=== PATIENT | female | born 1960 | race Caucasian/White ===

== ENCOUNTER 2016-03-17 08:57 | Outpatient (CLI) | payer OTHER | END 2016-03-17 08:58 | disposition home or self-care (01) | DX: G47.33 Obstructive sleep apnea (adult) (pediatric) (principal) ==

== ENCOUNTER 2017-05-16 13:49 | Outpatient (CLI) | payer OTHER | END 2017-05-16 13:50 | disposition home or self-care (01) | LOC: SC 13:49 | PROVIDERS: ATTEND Nurse Practitioner Family | DX: G47.33 Obstructive sleep apnea (adult) (pediatric) (principal) | CPT/HCPCS: 99212; 99213 ==

== ENCOUNTER 2018-07-10 08:16 | Outpatient (CLI) | payer OTHER | END 2018-07-10 08:17 | disposition home or self-care (01) | LOC: SC 08:16 | PROVIDERS: ATTEND Nurse Practitioner Family | DX: G47.33 Obstructive sleep apnea (adult) (pediatric) (principal) | CPT/HCPCS: 99212; 99214 ==

== ENCOUNTER 2019-07-17 17:00 | Outpatient (CLI) | payer OTHER ==
--- NOTE | 2019-07-17 16:43 | SLEEP CARE CONSULTATION ---
Information from patient questionnaire entered by Nelda Adams. I have reviewed and concur with the information entered by Nelda Adams. This document represents the service I personally performed and the decisions made by me, Carol Ann Traylor, RN, MSN, SUPPLY ASSISTANT. History of Present Illness Service Date and Time: 07/17/2019 1600 Previous diagnosis: Very Severe, Obstructive Sleep Apnea-Hypopnea Syndrome AHI: 78.6 Reason for follow up: annual Equipment type: CPAP Equipment obtained from: [facility] (getting supplies as needed) Mask style: Nasal pillows Backup mask available: Yes (old mask) Last cushion change: a few days ago Type of Sleep Study: Polysomnography CPAP Compliance Data - Data Reviewed with Patient Average duration of nightly device use: 7h 11m Compliance rate %: 98.3 Current pressure setting (cmH2O): 13.0 Humidity settin Heated hose settin Average residual AHI: 3.4 Average large leak: 1m 6s Subjective Patient concerns: reports: nasal congestion (sometimes - but is reduced with use of saline nasal spray 1- 2 times a week ), dry mouth, nose, throat (dry throat couple times a month - uses humidity only ), other (reported a 2 week period of elevated AHI of 16-17, no change in medications or medical conditions). denies: aerophagia, mask discomfort, air blowing in eyes, mask leak noise, condensation in mask/hose, epistaxis Observed to snore while using device: No Current pressure setting perceived as: comfortable On therapy, patient: reports: sleeping better, awakening more refreshed, being more awake and alert during the day, more rested overall, other. denies: drowsiness while driving Initial [place] Sleepiness Scale score: 15 Allergies and Home Medications Home medication list reviewed: No (no changes ) Review of Systems Review of systems same as previous: Yes Physical Exam Height: 5 ft 2 in Weight: 286 lb Body Mass Index: 52.3 BMI Classification: Morbidly Obese Impression and Plan 1. Obstructive Sleep Apnea-Hypopnea Syndrome, very severe, with good treatment compliance and good apnea control. On CPAP therapy, the patient has better sleep quality and is more rested overall. Nasal congestion and dry throat can be reduced with increasing the CPAP humidity. She does not use th heated hose which can be added if can if condensation with higher humidity setting. Saline nasal spray sample was also given to use prior to CPAP to clear nasal secretions and wash off any nasal allergens to facilitate nasal breathing. In addition, a steamy shower before bed will often assist nasal drainage. Printed instructions given on how to change humidity and heated hose settings with rationale explaining why to change. Patient has maintained her weight through the stress of the pandemic is is pleased as she is a stress eater. She is working with her primary provider to lose weight. Currently patients BMI is 52 / morbid obesity class. I reviewed how obesity increases the risk of apnea, CPAP pressure requirements and overall health risks especially cardiovascular and diabetes. Thus patient is encouraged to continue with plan of losing weight. I reviewed general principles of weight loss such as reducing portion size, reducing refined foods and balancing content with vegetables, fruit and protein. In addition tracking food intake will allow awareness of how to modify diet to achieve weight loss goals. Also eating more slowly will allow more awareness of food intake and enjoyment of food while assisting patient to modify intake at each meal. A diet consultation can be helpful in achieving optimal weight loss goals. Because weight loss can reduce CPAP pressure requirements I offered to change her CPAP pressure to an autoCPAP range to accommodate future weight loss. She would like to stay at current pressure. Symptoms to report for additional pressure adjustment discussed.Patient's apnea severity and rationale for treatment to reduce apnea, improve sleep quality and reduce cardiovascular and cerebrovascular events was reviewed. I also advised her to contact me if again notices a high residual AHI over a week time so at that time we can try to determine cause. There was no change in sleeping position or new medical condition. NO alcohol, muscle relaxants of sedatives before bed. * Continue CPAP pressure at 13 cmH2O * Implement methods to reduce nasal congestion. * Notify me if snoring with mask or feeling that the pressure is too much or too little * Attempt to lose weight * Call this office if any problems using CPAP * Return for follow up in 1 year , or sooner if concerns arise Visit Type: Telehealth Video (to reduce risk of Covid 19 exposure) Video Type: Anywhere to Go Patient Location: Home Location of Provider: Home Patient agrees and consents to this telehealth visit type: Yes Patient agrees to have their insurance billed: Yes Time Spent with Patient (minutes): 20 Provider Statement: I spent 100% of the Telehealth Video Call with the patient with greater than 50% spent counseling the patient and coordination of care.
== END 2019-07-17 17:01 | disposition home or self-care (01) ==
LOC: SC 17:00
PROVIDERS: ATTEND Nurse Practitioner Family
DX: G47.33 Obstructive sleep apnea (adult) (pediatric) (principal); E66.01 Morbid (severe) obesity due to excess calories; Z68.43 Body mass index [BMI] 50.0-59.9, adult

== ENCOUNTER 2020-07-10 11:00 | Outpatient (CLI) | payer OTHER ==
--- NOTE | 2020-07-10 11:11 | SLEEP CARE CONSULTATION ---
Information from patient questionnaire entered by Tania Baron. I have reviewed and concur with the information entered by Tania Baron. This document represents the service I personally performed and the decisions made by , Kasey Jiang ARNP. History of Present Illness Service Date and Time: 07/10/2020 1100 Previous diagnosis: Very Severe, Obstructive Sleep Apnea-Hypopnea Syndrome AHI: 78.6 (in 2016) Reason for follow up: annual (last seen 07/2019) Equipment type: CPAP Equipment obtained from: [facility] (getting supplies as needed) Mask style: Nasal Mask brand: Respironics (Dreamwear) Backup mask available: Yes (old mask) Last cushion change: 2 weeks ago Prior sleep studies: Yes Year and Where: 2016 - [facility] Type of Sleep Study: Polysomnography HPI additional information: ALVARO YATES was diagnosed to have very severe, AHI 78.6, obstructive sleep apnea-hypopnea syndrome and returns via Telehealth visit today for CPAP therapy annual follow-up. CPAP Compliance Data - Data Reviewed with Patient Average duration of nightly device use: 7 hr 11 min Compliance rate %: 98.3 (180 days) Current pressure setting (cmH2O): 13 Humidity settin Heated hose settin Average residual AHI: 3.4 Average large leak: 20 sec Subjective Patient concerns: reports: nasal congestion (little stuffy in the mornings, not affecting her at night), dry mouth, nose, throat (dry mouth). denies: aerophagia, mask discomfort, air blowing in eyes, mask leak noise, condensation in mask/hose, epistaxis, other Observed to snore while using device: No Current pressure setting perceived as: comfortable On therapy, patient: reports: sleeping better, awakening more refreshed, being more awake and alert during the day, more rested overall. denies: drowsiness while driving Initial [place] Sleepiness Scale score: 15 (in 2016) Current [place] Sleepiness Scale score: 3 Allergies and Home Medications Home medication list reviewed: Yes (no new meds) Review of Systems Review of systems same as previous: Yes (no changes) Physical Exam Vital signs obtained and entered by: Telehealth visit to reduce exposure during covid pandemic Height: 5 ft 2 in Impression and Plan 1. Obstructive Sleep Apnea-Hypopnea Syndrome, very severe, with good treatment compliance and good apnea control. On CPAP therapy, the patient has better sleep quality and is more rested overall. She has significant improvement of her sleep apnea and is very satisfied with her treatment. She has minor issues with CPAP use with occasional mouth dryness for which she adjust her humidity as needed. She states her weight this year has been holding out at 286 lbs. She has been walking 5 days a week. I advised her to concentrate on nutrition when choosing her food which should help with weight loss and health. She voiced understanding and agreement with plan of care. Patient's apnea severity and rationale for treatment to reduce apnea, improve sleep quality and reduce cardiovascular and cerebrovascular events was reviewed. I also reviewed the benefit of consistent device use of CPAP for hypertension, arrhythmia, and diabetes. * Continue auto CPAP pressure at 13 cmH2O * Notify me if snoring with mask or feeling that the pressure is too much or too little * Attempt to lose weight * Call this office if any problems using CPAP * Return for follow up in 1 year, or sooner if concerns arise Counseling Topics: Spare mask, Weight loss health impact Visit Type: Telehealth Video Video Type: VSee Patient Location: Home Location of Provider: Office Patient agrees and consents to this telehealth visit type: Yes Patient agrees to have their insurance billed: Yes Time Spent with Patient (minutes): 11 Provider Statement: I spent 100% of the Telehealth Video Call with the patient with greater than 50% spent counseling the patient and coordination of care.
== END 2020-07-10 11:01 | disposition home or self-care (01) ==
LOC: SC 11:00
PROVIDERS: ATTEND Nurse Practitioner Family
DX: G47.33 Obstructive sleep apnea (adult) (pediatric) (principal); E66.9 Obesity, unspecified

== ENCOUNTER 2021-09-09 10:30 | Outpatient (CLI) | payer OTHER ==
[2021-09-09 11:22] VITALS: BP 123/77
--- NOTE | 2021-09-09 11:22 | SLEEP CARE CONSULTATION ---
Information from patient questionnaire entered by Medina Laguerre MA. I have reviewed and concur with the information entered by Medina Laguerre MA. This document represents the service I personally performed and the decisions made by , Kasey Jiang ARNP. History of Present Illness Service Date and Time: 09/09/2021 1030 Previous diagnosis: Very Severe, Obstructive Sleep Apnea-Hypopnea Syndrome AHI: 78.6 (in 2016) Reason for follow up: annual (LAST SEEN 06/2020, JAYCE, ARAUJO 05/01/2015, NEW RX? ) Equipment type: CPAP Equipment obtained from: Other ([facility]: getting supplies as needed) Mask style: Nasal Mask brand: Respironics (Dreamwear) Backup mask available: Yes (old mask) Last cushion change: few days ago Prior sleep studies: Yes Year and Where: 2015 - [facility] Type of Sleep Study: Polysomnography HPI additional information: ALVARO YATES was diagnosed to have very severe, AHI 78.6, obstructive sleep apnea-hypopnea syndrome and returned today for CPAP therapy annual follow-up. Sleep Study - Results Type of Sleep Study: Polysomnography Prior sleep studies: Yes Year and Where: 2015 - [facility] CPAP Compliance Data - Data Reviewed with Patient Average duration of nightly device use: 7 HOURS 3 MINUTES Compliance rate %: 99.4 (180 days; 180/180 day usage) Current pressure setting (cmH2O): 13 Humidity settin Heated hose setting: OFF Average residual AHI: 2.5 Average large leak: 29 SECONDS Compliance data discussion: The lid on her water chamber is popping open on its own in the last week. Subjective Missed days of use due to: reports: travel, other (power outages) Patient concerns: reports: dry mouth, nose, throat (in last few weeks). denies: aerophagia, mask discomfort, air blowing in eyes, mask leak noise, condensation in mask/hose, nasal congestion, epistaxis, other Observed to snore while using device: No Current pressure setting perceived as: comfortable On therapy, patient: reports: sleeping better, awakening more refreshed, being more awake and alert during the day, more rested overall. denies: drowsiness while driving Initial [place] Sleepiness Scale score: 15 (in 2016) Current [place] Sleepiness Scale score: 2 (09/09/2021) Allergies and Home Medications Home medication list reviewed: Yes (Latanoprost eye drops) Review of Systems Review of systems same as previous: No (cataract surgery) Physical Exam Vital signs obtained and entered by: ANGÉLICA ORTIZ Blood Pressure: 123/77 (left) Heart Rate: 92 O2 Saturation: 98 (paper mask) Height: 5 ft 2 in Weight: 291 lb (clothes) Body Mass Index: 53.2 BMI Classification: Morbidly Obese Impression and Plan 1. Obstructive Sleep Apnea-Hypopnea Syndrome, very severe, with excellent treatment compliance and good apnea control. On CPAP therapy, the patient has better sleep quality and is more rested overall. Patient has a DreamStation that was last updated in 2016. She is registered for the recall but has not heard yet that she is getting a new device very soon. Patient would like to update her CPAP because it is over 5 years old and of reasonable use. Thus, the CPAP will be updated. A DWO prescription will be made. Compliance guidelines for new device and follow up discussed. Patient's apnea severity and rationale for treatment to reduce apnea, improve sleep quality and reduce cardiovascular and cerebrovascular events was reviewed. I also reviewed the benefit of consistent device use of CPAP for hypertension, arrhythmia and diabetes. 2. Obesity, unspecified. Currently patients BMI is 53.2. Obesity increases the risk of apnea, CPAP pressure requirements and overall health risks especially cardiovascular and diabetes. Thus patient is advised to lose weight. Weight loss can be done with reducing portion size, reducing refined foods and balancing content with vegetables, fruit and whole grain foods. In addition, patient encouraged to get regular exercise. * Continue CPAP pressure at 13 cmH2O * Update machine * Update supplies as needed * Notify me if snoring with mask or feeling that the pressure is too much or too little * Attempt to lose weight * Call this office if any problems using CPAP * Return for follow up one month after obtaining new device, or sooner if concerns arise Counseling Topics: Spare mask, Weight loss health impact Visit Type: In Office Time Spent with Patient (minutes): 20 Provider Statement: I spent 100% of the Face to Face Visit with the patient with greater than 50% spent counseling the patient and coordination of care.
== END 2021-09-09 10:31 | disposition home or self-care (01) ==
LOC: SC 10:30
PROVIDERS: ATTEND Nurse Practitioner Family
DX: G47.33 Obstructive sleep apnea (adult) (pediatric) (principal); E66.01 Morbid (severe) obesity due to excess calories; Z68.43 Body mass index [BMI] 50.0-59.9, adult
CPT/HCPCS: 99212; 99213